=== PATIENT | male | born 1990 | race Two or more races ===

== ENCOUNTER 2021-11-06 22:38 | Emergency (ER) | payer SELFPAY ==
[~2021-11-06] VITALS: Ht 170.2 cm; Wt 77.1 kg
[2021-11-06 22:51] VITALS: BP 129/82
[2021-11-06] MEDS ORDERED: AZIT250T13 PO (23:08)
--- NOTE | 2021-11-06 23:38 | NUR ---
Patient discharged to home in stable condition. Rx and Written and verbal after care instructions given. Patient verbalizes understanding of instruction.
== END 2021-11-07 00:23 | disposition home or self-care (01) ==
LOC: ER 22:52
DX: J32.1 Chronic frontal sinusitis (principal); Z60.2 Problems related to living alone